=== PATIENT | female | born 1985 | race African-American/Black ===

== ENCOUNTER 2016-07-18 12:09 | Emergency (ER) | payer OTHER ==
[~2016-07-18 12:09] MED LIST: ALLERGY10 M2 PO; AZITHROMYCIN250 MG PO; DIAZEPAM PO; FLONASE 0.05% N16 G1; HYDROCODON-ACE1 EAC4 PO; KEFLEX PO; LORTAB 10-3251 EACH PO; LORTAB 7.5-5001 TAB PO; MOTRIN600 MG PO; NAPROSYN-EC500 M1 DOB; NORCO1 TAB 10/3; PERCOCET 5/321 UDTAB; PHENERGAN PO; PROAIR HFA8.5 GM INH; TESSALON PERLE100 M1 DOB; TOPAMAX50 MG PO; ZANTAC150 MG PO; ZOFRAN ODT4 MG/UDTAB SL; ZOFRANODT SL; ZOLOFT50 MG PO; ZYRTEC; [UNRECOGNIZED DRUG - OTHER] PO; [UNRECOGNIZED DRUG - REMARK]
[2016-07-18] MEDS ORDERED: KEFLEX500 M2 PO (12:26)
[2016-07-18] MEDS ORDERED: DIFLUCAN PO (12:26)
== END 2016-07-18 12:25 | disposition home or self-care (01) ==
LOC: SED 12:09
DX: L03.115 Cellulitis of right lower limb (principal); K21.9 Gastro-esophageal reflux disease without esophagitis; F32.9 Major depressive disorder, single episode, unspecified; F17.210 Nicotine dependence, cigarettes, uncomplicated; Z98.890 Other specified postprocedural states; Z79.899 Other long term (current) drug therapy
CPT/HCPCS: 99282